=== PATIENT | male | born 1965 | race Caucasian/White ===

== ENCOUNTER 2017-02-15 04:32 | Inpatient (IN) | payer OTHER ==
[2017-02-13 13:30] LABS: WBC (NOT ORDERED) (RFLEX) 0 (0-5)
[2017-02-13 13:56] LABS: HEMATOCRIT 40.8 % (40.0-51.0); HEMOGLOBIN 13.7 g/dL (13.6-17.8)
[2017-02-13 14:07] LABS: BUN (BLOOD UREA NITROGEN) 22 MG/DL (6-23); CALCIUM, SERUM 9.1 MG/DL (8.5-10.4); CHLORIDE, SERUM 105 MMOL/L (96-112); CO2 (CARBON DIOXIDE) 28 MMOL/L (24-34); GFR AFRICAN AMERICAN 118 ML/MIN (>=60); GFR NON AFRICAN AMERICAN 102 ML/MIN (>=60); GLUCOSE, SERUM 113 MG/DL (60-99); POTASSIUM, SERUM 4.3 MMOL/L (3.5-5.3); SODIUM, SERUM 141 MMOL/L (135-148)
[2017-02-13 14:21] LABS: ASCORBIC ACID (UR NOT ORDER) NEG (NEG); BILIRUBIN, URINE MODERATE (NEG); KETONE, URINE NEGATIVE (NEG); LEUKOCYTE ESTERASE(NOT OR NEG (NEG)
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
--- NOTE | ~2017-02-15 | OP ---
Record Of Operation [facility] [address] [place]. [address] NAME: BIN TIDWELL : 61 STATUS : ADM IN [facility]#: [id number] AGE: 51 ADM/REG DATE : 02/15/17 MR#: [id number] REPORT SERV DATE: 02/21/17 DICTATED BY: RENETTA SUAREZ DATE: 02/21/17 REPORT STATUS : Draft TRANSCRIBED BY: MODL DATE: 02/21/17 DATE OF PROCEDURE: 02/20/2017 TITLE OF OPERATION: 1. Left laparoscopic radical nephrectomy. 2. Repair of umbilical hernia. PREOPERATIVE DIAGNOSES: 1. Left renal mass. 2. Umbilical hernia. POSTOPERATIVE DIAGNOSES: 1. Left renal mass. 2. Umbilical hernia. INDICATIONS: Mr. Tidwell is a 51-year-old male with a 6 cm left renal mass with hilar involvement. He also has an umbilical hernia. He is counseled regarding his options. He has elected for a left laparoscopic radical nephrectomy. ANESTHESIA: General. COMPLICATIONS: None. IMPLANTS: A 16-Ukrainian Johnston catheter. SPECIMEN: Left kidney. NARRATIVE: The patient was brought to the operating room, identified by his wristband. General anesthesia was induced and Ancef was given for preoperative antibiotics. He was placed in the modified left flank position and secured to the bed with pads and tape. Care was taken to pad all pressure points. His abdomen was insufflated to a pressure of 15 mmHg using a Veress needle. A supraumbilical incision was made and a 12 mm port was placed. The abdomen was inspected. There was no abnormalities or adhesions. A second 12 mm port was placed under the left costal margin and a third 12 mm port was placed in the left lower quadrant. The patient was rotated. The operation was begun by dropping the colon along the white line of Toldt exposing the retroperitoneum. This was reflected inferiorly to expose the aorta. Next, the splenorenal ligaments were sharply divided with a LigaSure device. The pancreas was sharply divided off the kidney with care taken not to injure the pancreas. Next, I identified the gonadal vein and ureter, entered the retroperitoneum beneath the structures. The kidney was lifted off the psoas muscle. The fibrofatty structures surrounding the renal hilum were sequentially taken with a LigaSure device. Eventually, a solitary renal artery and vein were identified. These were taken separately with a 45 mm endovascular automatic stapler. Next, LigaSure was used to divide the adrenal gland off the kidney as this was a lower pole tumor. Finally, the upper pole attachments were taken with a LigaSure device as were the attachments laterally. The gonadal vein and ureter were sequentially clipped and divided. The kidney was then free. It was placed into a 15 mm Record Of Operation [address] [address] NAME: BIN TIDWELL : 61 STATUS : ADM IN PAT#: [id number] AGE: 51 ADM/REG DATE : 02/15/17 MR#: [id number] REPORT SERV DATE: 02/21/17 DICTATED BY: RENETTA SUAREZ DATE: 02/21/17 REPORT STATUS : Draft TRANSCRIBED BY: BERLIN DATE: 02/21/17 EndoCatch bag. The left upper quadrant and left lower quadrant ports were closed with 0 Vicryl suture using a Calderon-Stella device. The midline port was then removed. A periumbilical incision was then made. The umbilical hernia was reduced. The skin and subcutaneous tissues were lifted up off the fascia to identify the fascial edges and the fascial defect. The fascia was then reapproximated primarily using 0 Monocryl suture in a [id number] fashion. No mesh was used. The wounds were irrigated clear. The kidney was removed from this incision as well. The subcutaneous tissues were closed with a 3-0 Vicryl suture in an interrupted fashion. Skin was closed with 4-0 Monocryl suture. A Dermabond dressing was placed. A TAP block was placed preoperatively. The patient was transferred to recovery room under stable condition. There were no complications. ALLY/BERLIN Renetta Suarez MD / [id number] CC: Ananya Trotter
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
--- NOTE | ~2017-02-15 | EEG ---
Electroencephalogram [facility] [address] [place]. [address] NAME: BIN AGUIRRE : 61 STATUS : ADM Maria Luz PAT#: [id number] AGE: 51 ADM/REG DATE : 02/15/17 MR#: [id number] REPORT SERV DATE: 02/15/17 DICTATED BY: DATE: REPORT STATUS : Draft TRANSCRIBED BY: MODL DATE: 02/15/17 CLINICAL INDICATIONS: Seizures. DESCRIPTION: This EEG was obtained using 10/20 electrode placement system. During the EEG study, symmetric background activity was noted with predominant occipital rhythm of roughly 9 hertz. Photic stimulation was performed with appropriate driving response. Hyperventilation was not performed secondary to the patient's medical condition. During the EEG study, the patient achieved drowsy state. No focal abnormality, seizure activity, or seizure discharge was otherwise noted during the EEG study. INTERPRETATION: This EEG study obtained during awake and drowsy state may be considered within normal limits. No focal abnormality, seizure activity, or seizure discharge was otherwise noted. Of note, normal EEG does not preclude diagnosis of seizure or seizure disorder. Clinical correlation is recommended. [facility]/MODL Denis Briseno MD / [id number] CC: Ananya Fields MD
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
[~2017-02-15 04:32] MED LIST: BREO ELLIPTA 21 EACH INH; CELEXA20 PO; FLOMAX4 PO; HYDROCHLOROT25 MG PO; KLONO5 PO; LISINOPRIL40 MG PO; MAXALT10 MG PO; NEUR800 PO; NORV10 PO; PRILOSEC40 MG PO; PROVHFA INH; ROXICODONE15 MG PO; SYMBICORT 160/41 INH INH; TOPAMAX50 MG PO
[2017-02-15 06:48] LABS: BASOPHILS 0.2 %; BASOPHILS ABSOLUTE 0.02 10/3/uL (0.0-0.16); EOSINOPHILS 1.8 %; EOSINOPHILS ABSOLUTE 0.17 10/3/uL (0.0-0.53); HEMATOCRIT 41.6 % (40.0-51.0); HEMOGLOBIN 13.6 g/dL (13.6-17.8); IMMATURE GRANULOCYTES 0.4 %; IMMATURE GRANULOCYTES ABSOLUTE 0.04 10/3/uL (0.0-0.11); LYMPHOCYTES 11.7 %; LYMPHOCYTES ABSOLUTE 1.08 10/3/uL (0.67-4.30); MEAN CORPUS HGB CONC 32.7 g/dL (32.0-36.0); MEAN CORPUSCULAR HEMOGLOB 28.5 pg (26.0-34.0); MEAN PLATELET VOLUME 12.1 fL (9.2-13.0); MONOCYTES 8.5 %; MONOCYTES ABSOLUTE 0.78 10/3/uL (0.21-1.20); NEUTROPHILS 77.4 %; NEUTROPHILS ABSOLUTE 7.14 10/3/uL (2.02-8.40); PLATELET COUNT 179 10/3/uL (150-400); RBC DISTRIBUTION WIDTH 14.3 % (12.0-16.0); RED CELL COUNT 4.78 10/6/uL (4.7-6.1); WHITE BLOOD CELLS 9.2 10/3/uL (4.5-10.5)
[2017-02-15 06:49] LABS: MANUAL DIFF NO %
[2017-02-15 07:15] LABS: ALBUMIN 3.6 G/DL (3.5-5.0); ALKALINE PHOSPHATASE 116 U/L (45-117); CALCIUM, SERUM 8.8 MG/DL (8.5-10.4); CHLORIDE, SERUM 105 MMOL/L (96-112); CO2 (CARBON DIOXIDE) 28 MMOL/L (24-34); CREATININE 0.72 MG/DL (0.70-1.30); GFR AFRICAN AMERICAN 123 ML/MIN (>=60); GFR NON AFRICAN AMERICAN 107 ML/MIN (>=60); GLOBULIN 3.5 G/DL (2.5-4.1); GLUCOSE, SERUM 135 MG/DL (60-99); PHOSPHORUS, SERUM 3.6 MG/DL (2.5-4.5); SGPT(ALT) 28 U/L (5-65); SODIUM, SERUM 141 MMOL/L (135-148); TOTAL BILIRUBIN 0.9 MG/DL (0-1.2); TOTAL PROTEIN 7.1 G/DL (6.0-8.5); ULTRASENSITIVE TSH 0.747 MCIU/ML (0.358-3.740)
[2017-02-15 07:16] LABS: BUN (BLOOD UREA NITROGEN) 15 MG/DL (6-23)
[2017-02-15 07:17] LABS: POTASSIUM, SERUM 5.4 MMOL/L (3.5-5.3); SGOT(AST) 43 U/L (5-40)
[2017-02-15 14:43] LABS: CHOL/HDL RATIO(NOT ORDER) 2.2 (0-5); CHOLESTEROL 198 MG/DL (< 200); HDL CHOLESTEROL 89 MG/DL (> 39); LDL CHOLESTEROL 92 MG/DL (< 130); NON-HDL CHOLESTEROL 109 MG/DL (< 160); TRIGLYCERIDE 86 MG/DL (< 150)
[2017-02-15 14:44] LABS: C-REACTIVE PROTEIN < 2.9 MG/L (<8.0); FOLATE 12.8 NG/ML (>5.2)
[2017-02-15] MEDS ORDERED: L20 PO (14:47)
[2017-02-15] MEDS ORDERED: BREO ELLIPTA 21 EACH INH (14:47)
[2017-02-15] MEDS ORDERED: XANAX1 MG PO (14:48)
[2017-02-15] MEDS ORDERED: SYMBICORT 160/41 INH PO (14:48)
[2017-02-15] MEDS ORDERED: ROXICODONE15 MG PO (14:49)
[2017-02-15] MEDS ORDERED: PROVHFA PO (14:49)
[2017-02-15] MEDS ORDERED: NORV5 PO (14:49)
[2017-02-15] MEDS ORDERED: MIRALAX POWDER1 PKT PO (14:50)
[2017-02-15] MEDS ORDERED: BIOFREEZE TOP (14:50)
[2017-02-15] MEDS ORDERED: TYLENOL PM PO (14:50)
[2017-02-15] MEDS ORDERED: NEUR800 PO (14:50)
[2017-02-15] MEDS ORDERED: LISINOPRIL40 MG PO (14:50)
[2017-02-15] MEDS ORDERED: ZOFRAN4 PO (14:51)
[2017-02-15] MEDS ORDERED: BACLOFEN20 MG PO (14:51)
[2017-02-15] MEDS ORDERED: PRILOSEC40 MG PO (14:52)
[2017-02-15] MEDS ORDERED: P10 PO (14:52)
[2017-02-15] MEDS ORDERED: Z-PAK PO (14:53)
[2017-02-15] MEDS ORDERED: MAXALTODT1 PO (14:53)
[2017-02-16 17:38] LABS: TROPONIN I <0.02 NG/ML (<0.05)
[2017-02-16 17:39] LABS: POTASSIUM, SERUM 4.1 MMOL/L (3.5-5.3)
[2017-02-17 07:43] LABS: BASOPHILS 0.2 %; BASOPHILS ABSOLUTE 0.04 10/3/uL (0.0-0.16); EOSINOPHILS 1.3 %; EOSINOPHILS ABSOLUTE 0.23 10/3/uL (0.0-0.53); HEMOGLOBIN 15.5 g/dL (13.6-17.8); IMMATURE GRANULOCYTES 0.6 %; IMMATURE GRANULOCYTES ABSOLUTE 0.11 10/3/uL (0.0-0.11); LYMPHOCYTES 6.4 %; LYMPHOCYTES ABSOLUTE 1.16 10/3/uL (0.67-4.30); MEAN CORPUS HGB CONC 32.4 g/dL (32.0-36.0); MEAN CORPUSCULAR VOLUME 89.5 fL (80-100); MEAN PLATELET VOLUME 10.4 fL (9.2-13.0); MONOCYTES ABSOLUTE 1.46 10/3/uL (0.21-1.20); NEUTROPHILS 83.5 %; NEUTROPHILS ABSOLUTE 15.18 10/3/uL (2.02-8.40); RBC DISTRIBUTION WIDTH 14.6 % (12.0-16.0); RED CELL COUNT 5.34 10/6/uL (4.7-6.1)
[2017-02-17 07:47] LABS: HEMATOCRIT 47.8 % (40.0-51.0); MANUAL DIFF NO %; PLATELET COUNT 324 10/3/uL (150-400); WHITE BLOOD CELLS 18.2 10/3/uL (4.5-10.5)
[2017-02-17 08:00] LABS: CALCIUM, SERUM 9.5 MG/DL (8.5-10.4); CHLORIDE, SERUM 101 MMOL/L (96-112); CO2 (CARBON DIOXIDE) 25 MMOL/L (24-34); GFR AFRICAN AMERICAN 40 ML/MIN (>=60); GFR NON AFRICAN AMERICAN 34 ML/MIN (>=60); GLUCOSE, SERUM 112 MG/DL (60-99); POTASSIUM, SERUM 4.5 MMOL/L (3.5-5.3); SODIUM, SERUM 138 MMOL/L (135-148)
[2017-02-17 08:01] LABS: BUN (BLOOD UREA NITROGEN) 24 MG/DL (6-23); CREATININE 2.12 MG/DL (0.70-1.30)
[2017-02-17 17:50] LABS: CALCIUM, SERUM 9.5 MG/DL (8.5-10.4); CHLORIDE, SERUM 99 MMOL/L (96-112); CO2 (CARBON DIOXIDE) 27 MMOL/L (24-34); CPK 31 U/L (0-200); GLUCOSE, SERUM 90 MG/DL (60-99); POTASSIUM, SERUM 4.7 MMOL/L (3.5-5.3); SODIUM, SERUM 139 MMOL/L (135-148)
[2017-02-17 17:52] LABS: BUN (BLOOD UREA NITROGEN) 31 MG/DL (6-23); CREATININE 2.68 MG/DL (0.70-1.30); GFR AFRICAN AMERICAN 30 ML/MIN (>=60); GFR NON AFRICAN AMERICAN 26 ML/MIN (>=60)
[2017-02-17 19:03] LABS: ASCORBIC ACID (UR NOT ORDER) NEG (NEG); BILIRUBIN, URINE NEGATIVE (NEG); KETONE, URINE NEGATIVE (NEG); LEUKOCYTE ESTERASE(NOT OR NEG (NEG); WBC (NOT ORDERED) (RFLEX) 6 (0-5)
[2017-02-18 07:05] LABS: BASOPHILS 0.3 %; BASOPHILS ABSOLUTE 0.03 10/3/uL (0.0-0.16); EOSINOPHILS 4.6 %; EOSINOPHILS ABSOLUTE 0.43 10/3/uL (0.0-0.53); HEMOGLOBIN 12.5 g/dL (13.6-17.8); IMMATURE GRANULOCYTES 0.4 %; IMMATURE GRANULOCYTES ABSOLUTE 0.04 10/3/uL (0.0-0.11); LYMPHOCYTES 17.8 %; LYMPHOCYTES ABSOLUTE 1.65 10/3/uL (0.67-4.30); MEAN CORPUS HGB CONC 32.7 g/dL (32.0-36.0); MEAN CORPUSCULAR HEMOGLOB 28.6 pg (26.0-34.0); MEAN CORPUSCULAR VOLUME 87.4 fL (80-100); MEAN PLATELET VOLUME 10.5 fL (9.2-13.0); MONOCYTES 9.4 %; MONOCYTES ABSOLUTE 0.87 10/3/uL (0.21-1.20); NEUTROPHILS 67.5 %; NEUTROPHILS ABSOLUTE 6.27 10/3/uL (2.02-8.40); PLATELET COUNT 285 10/3/uL (150-400); RBC DISTRIBUTION WIDTH 14.3 % (12.0-16.0); RED CELL COUNT 4.37 10/6/uL (4.7-6.1)
[2017-02-18 07:08] LABS: INTERNATIONAL NORMAL RATI 1.1 UNITS (-); PROTIME (NOT ORD) 14.3 SEC (12.0-14.5)
[2017-02-18 07:09] LABS: PARTIAL THROMBO TIME 33.5 SEC (22.5-37.2)
[2017-02-18 07:12] LABS: BUN (BLOOD UREA NITROGEN) 31 MG/DL (6-23); CALCIUM, SERUM 9.3 MG/DL (8.5-10.4); CHLORIDE, SERUM 102 MMOL/L (96-112); CO2 (CARBON DIOXIDE) 30 MMOL/L (24-34); CREATININE 1.64 MG/DL (0.70-1.30); GFR AFRICAN AMERICAN 55 ML/MIN (>=60); GFR NON AFRICAN AMERICAN 47 ML/MIN (>=60); GLUCOSE, SERUM 152 MG/DL (60-99); PHOSPHORUS, SERUM 3.8 MG/DL (2.5-4.5); POTASSIUM, SERUM 4.4 MMOL/L (3.5-5.3); SODIUM, SERUM 140 MMOL/L (135-148)
[2017-02-18 07:40] LABS: HEMATOCRIT 38.2 % (40.0-51.0); MANUAL DIFF NO %; WHITE BLOOD CELLS 9.3 10/3/uL (4.5-10.5)
[2017-02-19 07:19] LABS: ALBUMIN 3.2 G/DL (3.5-5.0); BUN (BLOOD UREA NITROGEN) 23 MG/DL (6-23); CALCIUM, SERUM 9.4 MG/DL (8.5-10.4); CHLORIDE, SERUM 101 MMOL/L (96-112); CO2 (CARBON DIOXIDE) 29 MMOL/L (24-34); GFR AFRICAN AMERICAN 88 ML/MIN (>=60); GFR NON AFRICAN AMERICAN 76 ML/MIN (>=60); GLUCOSE, SERUM 126 MG/DL (60-99); PHOSPHORUS, SERUM 3.9 MG/DL (2.5-4.5); POTASSIUM, SERUM 4.8 MMOL/L (3.5-5.3); SODIUM, SERUM 138 MMOL/L (135-148)
[2017-02-20 06:19] LABS: BASOPHILS 0.8 %; BASOPHILS ABSOLUTE 0.04 10/3/uL (0.0-0.16); EOSINOPHILS ABSOLUTE 0.38 10/3/uL (0.0-0.53); HEMATOCRIT 39.1 % (40.0-51.0); IMMATURE GRANULOCYTES 0.2 %; IMMATURE GRANULOCYTES ABSOLUTE 0.01 10/3/uL (0.0-0.11); LYMPHOCYTES 30.3 %; LYMPHOCYTES ABSOLUTE 1.44 10/3/uL (0.67-4.30); MEAN CORPUS HGB CONC 33.2 g/dL (32.0-36.0); MEAN CORPUSCULAR HEMOGLOB 29.2 pg (26.0-34.0); MEAN CORPUSCULAR VOLUME 87.9 fL (80-100); MEAN PLATELET VOLUME 10.5 fL (9.2-13.0); MONOCYTES 10.1 %; MONOCYTES ABSOLUTE 0.48 10/3/uL (0.21-1.20); NEUTROPHILS 50.6 %; PLATELET COUNT 267 10/3/uL (150-400); RBC DISTRIBUTION WIDTH 13.8 % (12.0-16.0); RED CELL COUNT 4.45 10/6/uL (4.7-6.1)
[2017-02-20 06:25] LABS: MANUAL DIFF NO %; WHITE BLOOD CELLS 4.8 10/3/uL (4.5-10.5)
[2017-02-20 06:35] LABS: ALBUMIN 3.3 G/DL (3.5-5.0); BUN (BLOOD UREA NITROGEN) 18 MG/DL (6-23); CALCIUM, SERUM 9.6 MG/DL (8.5-10.4); CHLORIDE, SERUM 98 MMOL/L (96-112); CO2 (CARBON DIOXIDE) 31 MMOL/L (24-34); CREATININE 1.05 MG/DL (0.70-1.30); GFR AFRICAN AMERICAN 93 ML/MIN (>=60); GFR NON AFRICAN AMERICAN 81 ML/MIN (>=60); GLUCOSE, SERUM 116 MG/DL (60-99); PHOSPHORUS, SERUM 4.5 MG/DL (2.5-4.5); POTASSIUM, SERUM 4.9 MMOL/L (3.5-5.3); SODIUM, SERUM 139 MMOL/L (135-148)
[2017-02-20 06:43] LABS: PARTIAL THROMBO TIME 31.2 SEC (22.5-37.2); PROTIME (NOT ORD) 12.8 SEC (12.0-14.5)
[2017-02-20 10:07] LABS: BASOPHILS 0.3 %; BASOPHILS ABSOLUTE 0.03 10/3/uL (0.0-0.16); EOSINOPHILS 1.5 %; EOSINOPHILS ABSOLUTE 0.18 10/3/uL (0.0-0.53); HEMATOCRIT 36.7 % (40.0-51.0); HEMOGLOBIN 12.1 g/dL (13.6-17.8); IMMATURE GRANULOCYTES 0.3 %; IMMATURE GRANULOCYTES ABSOLUTE 0.04 10/3/uL (0.0-0.11); LYMPHOCYTES 7.4 %; LYMPHOCYTES ABSOLUTE 0.88 10/3/uL (0.67-4.30); MEAN CORPUSCULAR HEMOGLOB 28.6 pg (26.0-34.0); MEAN CORPUSCULAR VOLUME 86.8 fL (80-100); MEAN PLATELET VOLUME 10.1 fL (9.2-13.0); MONOCYTES 1.3 %; MONOCYTES ABSOLUTE 0.16 10/3/uL (0.21-1.20); NEUTROPHILS 89.2 %; NEUTROPHILS ABSOLUTE 10.68 10/3/uL (2.02-8.40); PLATELET COUNT 225 10/3/uL (150-400); RED CELL COUNT 4.23 10/6/uL (4.7-6.1)
[2017-02-20 10:12] LABS: MANUAL DIFF NO %
[2017-02-20 10:21] LABS: BUN (BLOOD UREA NITROGEN) 20 MG/DL (6-23); CALCIUM, SERUM 8.8 MG/DL (8.5-10.4); CHLORIDE, SERUM 100 MMOL/L (96-112); CO2 (CARBON DIOXIDE) 30 MMOL/L (24-34); CREATININE 1.13 MG/DL (0.70-1.30); GFR AFRICAN AMERICAN 86 ML/MIN (>=60); GFR NON AFRICAN AMERICAN 74 ML/MIN (>=60); POTASSIUM, SERUM 5.7 MMOL/L (3.5-5.3); SODIUM, SERUM 136 MMOL/L (135-148)
[2017-02-20 10:22] LABS: GLUCOSE, SERUM 148 MG/DL (60-99)
[2017-02-20 16:28] LABS: BUN (BLOOD UREA NITROGEN) 23 MG/DL (6-23); CALCIUM, SERUM 8.6 MG/DL (8.5-10.4); CHLORIDE, SERUM 98 MMOL/L (96-112); CO2 (CARBON DIOXIDE) 29 MMOL/L (24-34); POTASSIUM, SERUM 4.9 MMOL/L (3.5-5.3); SODIUM, SERUM 137 MMOL/L (135-148)
[2017-02-20 16:29] LABS: CREATININE 1.69 MG/DL (0.70-1.30); GFR AFRICAN AMERICAN 53 ML/MIN (>=60); GFR NON AFRICAN AMERICAN 45 ML/MIN (>=60); GLUCOSE, SERUM 226 MG/DL (60-99)
[2017-02-21 04:44] LABS: BASOPHILS 0.1 %; BASOPHILS ABSOLUTE 0.01 10/3/uL (0.0-0.16); EOSINOPHILS 0.5 %; EOSINOPHILS ABSOLUTE 0.04 10/3/uL (0.0-0.53); HEMATOCRIT 37.9 % (40.0-51.0); HEMOGLOBIN 12.7 g/dL (13.6-17.8); IMMATURE GRANULOCYTES 0.1 %; IMMATURE GRANULOCYTES ABSOLUTE 0.01 10/3/uL (0.0-0.11); LYMPHOCYTES 11.7 %; LYMPHOCYTES ABSOLUTE 0.98 10/3/uL (0.67-4.30); MEAN CORPUS HGB CONC 33.5 g/dL (32.0-36.0); MEAN CORPUSCULAR VOLUME 86.5 fL (80-100); MEAN PLATELET VOLUME 10.5 fL (9.2-13.0); MONOCYTES 9.4 %; MONOCYTES ABSOLUTE 0.79 10/3/uL (0.21-1.20); NEUTROPHILS 78.2 %; NEUTROPHILS ABSOLUTE 6.56 10/3/uL (2.02-8.40); RBC DISTRIBUTION WIDTH 13.4 % (12.0-16.0); RED CELL COUNT 4.38 10/6/uL (4.7-6.1); WHITE BLOOD CELLS 8.4 10/3/uL (4.5-10.5)
[2017-02-21 04:45] LABS: MANUAL DIFF NO %; PLATELET COUNT 309 10/3/uL (150-400)
[2017-02-21 04:59] LABS: ALBUMIN 3.1 G/DL (3.5-5.0); BUN (BLOOD UREA NITROGEN) 24 MG/DL (6-23); CALCIUM, SERUM 8.8 MG/DL (8.5-10.4); CHLORIDE, SERUM 100 MMOL/L (96-112); CO2 (CARBON DIOXIDE) 28 MMOL/L (24-34); CREATININE 1.62 MG/DL (0.70-1.30); GFR AFRICAN AMERICAN 55 ML/MIN (>=60); GFR NON AFRICAN AMERICAN 48 ML/MIN (>=60); PHOSPHORUS, SERUM 4.2 MG/DL (2.5-4.5); POTASSIUM, SERUM 4.4 MMOL/L (3.5-5.3); SODIUM, SERUM 138 MMOL/L (135-148)
[2017-02-21 05:00] LABS: GLUCOSE, SERUM 128 MG/DL (60-99)
[2017-02-22 07:01] LABS: ALBUMIN 3.1 G/DL (3.5-5.0); BUN (BLOOD UREA NITROGEN) 25 MG/DL (6-23); CHLORIDE, SERUM 101 MMOL/L (96-112); CO2 (CARBON DIOXIDE) 27 MMOL/L (24-34); CREATININE 1.46 MG/DL (0.70-1.30); GFR AFRICAN AMERICAN 63 ML/MIN (>=60); GFR NON AFRICAN AMERICAN 54 ML/MIN (>=60); GLUCOSE, SERUM 107 MG/DL (60-99); PHOSPHORUS, SERUM 4.1 MG/DL (2.5-4.5); POTASSIUM, SERUM 4.6 MMOL/L (3.5-5.3); SODIUM, SERUM 136 MMOL/L (135-148)
[2017-02-23 05:05] LABS: BUN (BLOOD UREA NITROGEN) 28 MG/DL (6-23); CALCIUM, SERUM 9.3 MG/DL (8.5-10.4); CHLORIDE, SERUM 101 MMOL/L (96-112); CO2 (CARBON DIOXIDE) 27 MMOL/L (24-34); CREATININE 1.66 MG/DL (0.70-1.30); GFR AFRICAN AMERICAN 54 ML/MIN (>=60); GFR NON AFRICAN AMERICAN 46 ML/MIN (>=60); GLUCOSE, SERUM 127 MG/DL (60-99); PHOSPHORUS, SERUM 4.5 MG/DL (2.5-4.5); POTASSIUM, SERUM 4.4 MMOL/L (3.5-5.3); SODIUM, SERUM 138 MMOL/L (135-148)
[2017-02-23 10:05] LABS: BASOPHILS 0.4 %; BASOPHILS ABSOLUTE 0.03 10/3/uL (0.0-0.16); EOSINOPHILS 5.4 %; HEMATOCRIT 37.7 % (40.0-51.0); HEMOGLOBIN 12.7 g/dL (13.6-17.8); IMMATURE GRANULOCYTES 0.5 %; IMMATURE GRANULOCYTES ABSOLUTE 0.04 10/3/uL (0.0-0.11); LYMPHOCYTES 20.9 %; LYMPHOCYTES ABSOLUTE 1.56 10/3/uL (0.67-4.30); MEAN CORPUS HGB CONC 33.7 g/dL (32.0-36.0); MEAN CORPUSCULAR HEMOGLOB 28.9 pg (26.0-34.0); MEAN CORPUSCULAR VOLUME 85.9 fL (80-100); MONOCYTES 11.1 %; MONOCYTES ABSOLUTE 0.83 10/3/uL (0.21-1.20); NEUTROPHILS 61.7 %; PLATELET COUNT 267 10/3/uL (150-400); RBC DISTRIBUTION WIDTH 13.7 % (12.0-16.0); RED CELL COUNT 4.39 10/6/uL (4.7-6.1); WHITE BLOOD CELLS 7.5 10/3/uL (4.5-10.5)
[2017-02-23 10:09] LABS: MANUAL DIFF NO %
[2017-02-23 10:37] LABS: PROCALCITONIN 0.17 ng/mL (<0.5)
[2017-02-23] MEDS ORDERED: REG5 (15:11)
[2017-02-23] MEDS ORDERED: OXYCON20 (15:12)
[2017-02-23] MEDS ORDERED: ROXICODONE15 MG PO (15:12)
[2017-02-23] MEDS ORDERED: CLEOCIN300 MG PO (15:13)
[2017-02-23] MEDS ORDERED: DSS PO (15:13)
[2017-02-23] MEDS ORDERED: PEP20 PO (15:14)
== END 2017-02-23 16:10 | disposition home or self-care (01) | DRG 656 ==
LOC: 1SO 04:32
PROVIDERS: Hospitalist; Internal Medicine; Internal Medicine Nephrology; Internal Medicine Pulmonary Disease; Nurse Practitioner; Urology
PROC: 0TT14ZZ Resection of Left Kidney, Percutaneous Endoscopic Approach (ICD-10-PCS; principal; 2017-02-20 06:45)
PROC: 0WQF0ZZ Repair Abdominal Wall, Open Approach (ICD-10-PCS; 2017-02-20 06:45)
DX: C64.2 Malignant neoplasm of left kidney, except renal pelvis (principal); G93.41 Metabolic encephalopathy; N17.9 Acute kidney failure, unspecified; S22.41XA Multiple fractures of ribs, right side, initial encounter for closed fracture; K56.0 Paralytic ileus; S06.9X9A Unspecified intracranial injury with loss of consciousness of unspecified duration, initial encounter; T81.4XXA Infection following a procedure, initial encounter; L03.312 Cellulitis of back [any part except buttock and flank]; I95.9 Hypotension, unspecified; Y83.8 Other surgical procedures as the cause of abnormal reaction of the patient, or of later complication, without mention of misadventure at the time of the procedure; I10 Essential (primary) hypertension; J44.9 Chronic obstructive pulmonary disease, unspecified; N40.0 Benign prostatic hyperplasia without lower urinary tract symptoms; G89.29 Other chronic pain; M54.9 Dorsalgia, unspecified; M79.642 Pain in left hand; K42.9 Umbilical hernia without obstruction or gangrene; G43.909 Migraine, unspecified, not intractable, without status migrainosus; S16.1XXA Strain of muscle, fascia and tendon at neck level, initial encounter; S62.102A Fracture of unspecified carpal bone, left wrist, initial encounter for closed fracture; F41.8 Other specified anxiety disorders; T42.8X5A Adverse effect of antiparkinsonism drugs and other central muscle-tone depressants, initial encounter; E87.5 Hyperkalemia; T43.295A Adverse effect of other antidepressants, initial encounter; E88.09 Other disorders of plasma-protein metabolism, not elsewhere classified; K21.9 Gastro-esophageal reflux disease without esophagitis; E86.9 Volume depletion, unspecified; E86.0 Dehydration; V39.3XXA Occupant (driver) (passenger) of three-wheeled motor vehicle injured in unspecified nontraffic accident, initial encounter; Z87.891 Personal history of nicotine dependence; Z79.891 Long term (current) use of opiate analgesic; Z79.899 Other long term (current) drug therapy; Z85.3 Personal history of malignant neoplasm of breast; Z88.0 Allergy status to penicillin; Z88.5 Allergy status to narcotic agent; Z88.2 Allergy status to sulfonamides
CPT/HCPCS: 36415; 70544; 70548; 70551-52; 72141; 80048; 80053; 80061; 80069; 81001; 82533; 82550; 82553; 82570; 82607; 82746; 82962; 83036; 83735; 84100; 84132; 84145; 84300; 84443; 84484; 85014; 85018; 85025; 85610; 85652; 85730; 86140; 86850; 86900; 86901; 88307; 93005; 93975; 94640; 95816; A9270-GY; A9577; C8929; J0360; J1170; J2250; J2370; J2405; J2710; J2765; J2795; J3010; J3370; Q9957